=== PATIENT | male | born 1950 | race Caucasian/White ===

== ENCOUNTER 2016-09-09 07:55 | Inpatient (IN) | payer BC, MEDICARE ==
--- NOTE | ~2016-09-09 | CN ---
Consultation Report [facility] [address] [place]. [address] NAME: PRITESH CARTAGENA : 50 STATUS : ADM IN PAT#: [id number] AGE: 66 ADM/REG DATE : 09/09/16 MR#: [id number] REPORT SERV DATE: 09/09/16 DICTATED BY: SETH VALADEZ DATE: 09/09/16 REPORT STATUS : Draft TRANSCRIBED BY: MODL DATE: 09/09/16 DATE OF CONSULTATION: 09/09/2016 REASON FOR CONSULTATION: This is in regard to congestive heart failure, acute on chronic manifestations. HISTORY OF PRESENT ILLNESS: Mr. 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 He has a history of having congestive heart failure with a mild decrease in LV systolic function, ejection fraction last measured in March 45%. No previous history of coronary disease. He has been treated with outpatient salt and fluid restriction as well as use of Lasix. About three days ago, he says that he was getting really busy and stopped taking his Lasix. Last evening in the middle of night while he was lying down, he became increasingly short of breath and then presented to the [facility] Emergency Room with these complaints. Chest x-ray and examination as well as laboratory findings all were suggestive of acute on chronic congestive heart failure with evidence for pulmonary vascular congestion on his chest x-ray and a modestly elevated BNP of 293. The patient received IV diuretic in the emergency room and did have good urinary output to the IV diuretic. His symptoms have improved with his diuresis. He is denying any chest pain or chest discomfort. He has had no problems with hypotension and in fact, has been hypertensive and is currently on an IV Cardene drip. PAST MEDICAL HISTORY: Notable for mild decrease in LV systolic function with ejection fraction last measured at 45% in 03/2016, history of hypertension, history of obstructive sleep apnea, history of benign prostatic hypertrophy, history of COPD, history of diabetes. FAMILY HISTORY: Negative for premature coronary disease or sudden cardiac . SOCIAL HISTORY: EtOH and tobacco use. REVIEW OF SYSTEMS: As noted above. All other systems reviewed and negative. PHYSICAL EXAMINATION: VITAL SIGNS: Currently, blood pressure on IV Cardene of 117/72, his pulse is 74, his respirations are 18, his O2 sat is at 94%. GENERAL: Well developed, well nourished. HEENT: No icterus. Good dentition. NECK: Supple. No masses or thyromegaly. LUNGS: Breathing comfortably. There are some soft rales at the bases bilaterally. COR: Normal S1 and S2. No S3 or S4. No murmurs, clicks, rubs. No JVD. ABD: Soft, nondistended, nontender. No hepatosplenomegaly. EXT: No clubbing, cyanosis, or edema. Peripheral pulses 2+/= bilaterally. SKIN: Warm and dry. No visible lesions. MS: Chest wall without deformity. No obvious clavicular fractures. NEURO/PSYCH: Oriented x3. No anxiety or depression. Consultation Report [address] [place]. [address] NAME: PRITESH CARTAGENA : 50 STATUS : ADM IN [facility]#: [id number] AGE: 66 ADM/REG DATE : 09/09/16 MR#: [id number] REPORT SERV DATE: 09/09/16 DICTATED BY: SETH VALADEZ DATE: 09/09/16 REPORT STATUS : Draft TRANSCRIBED BY: CHRISTIANO DATE: 09/09/16 DATA: EKG shows a sinus rhythm with left bundle-branch block. I do not have an old EKG available to me right now. No further interpretation due to left bundle-branch block. IMPRESSION: 1. The patient with known history of congestive heart failure with evidence of mild LV systolic dysfunction. He demonstrates acute on chronic congestive heart failure and this may be due to pharmacologic noncompliance as the patient stopped taking his Lasix few days ago. We discussed the need for him to stay on the oral diuretic as well as watching carefully salt and fluid intake. We will have the Congestive Heart Failure Service look in on him and go over dietary and pharmacologic issues with him. We will restrict fluid intake and use IV diuresis. The patient does have renal insufficiency with creatinine of 1.39, we will need to monitor this carefully. Possibly, would recommend holding his ENRICO inhibitor for now while he is receiving the diuretic. Monitor for troponin increase. He did have a mild troponin elevation, but we will follow. The patient has had workup for coronary disease in the past that was negative. 2. In terms of his hypertension, some of this could be related to his acute congestive heart failure episode and adrenergic response to hypoxia. We will monitor this over time. 3. Obstructive sleep apnea. Has refused to wear CPAP in the past. This may be contributing to both hypertension and congestive heart failure issues. ILIANA/MODL Seth Valadez M.D. / [id number] CC: Astrid Flores M.D.
--- NOTE | ~2016-09-09 | HP ---
History And Physical [id number] [place]. [address] NAME: PRITESH JOLLEY : 50 STATUS : ADM IN [facility]#: [id number] AGE: 66 ADM/REG DATE : 09/09/16 MR#: [id number] REPORT SERV DATE: 09/09/16 DICTATED BY: GREGORY FLORES DATE: 09/09/16 REPORT STATUS : Draft TRANSCRIBED BY: MODL DATE: 09/09/16 DATE OF ADMISSION: 09/09/2016 HISTORY OF PRESENT ILLNESS: This is a 66-year-old patient I was asked to admit by Dr. Gutiérrez after the patient presented to the emergency room with increasing shortness of breath and chest discomfort. He was hypertensive in the ER as high as 194/94, afebrile, pulse was 87, respiratory rate was 35. He was 92% on 3 L. He got an inch of nitroglycerin paste and started on nitroglycerin drip, Lasix was given, BiPAP was started and aspirin was given as well. The patient then was admitted to the ICU for further care with a diagnosis of exacerbation of CHF, rule out non-STEMI. The patient states that he has forgotten to take his Lasix over the last few days, but denies any nausea, vomiting, fever, diarrhea, or chest heaviness. ALLERGIES: HE HAS NO KNOWN DRUG ALLERGIES. MEDICATIONS AT HOME: Include Lasix 20 mg p.o. daily, Norvasc 5 mg p.o. daily, Diovan 320/25 one tablet daily, Lipitor 40 mg daily, Aleve 440 mg every 12 hours as needed for pain, insulin Tresiba FlexTouch 12 units subcu daily, potassium chloride 20 mEq daily, lisinopril 10 mg daily, amiodarone 200 mg p.o. daily. PAST MEDICAL HISTORY: Significant for mild decrease in left systolic ventricular ejection fraction of about 45%; history of hypertension; obstructive sleep apnea, not compliant with CPAP; history of benign prostatic hypertrophy; COPD; and history of diabetes. He has a history of left bundle-branch block. Pulmonary function tests were done by Dr. Raygoza in 2009 that showed a forced vital capacity of 3.17 which is 74% predicted and an FEV1 of 2.5 which is 77% predicted. SOCIAL HISTORY: The patient occasionally has an alcoholic beverage. The patient smoked about two packs a week for 20 years, but stopped smoking a few years ago. He lives with his . Has five children and several grandchildren and great grandchildren. FAMILY HISTORY: There is a family history of hypertension. There is no history of coronary artery disease. The patient's mom had a history of heart failure, but otherwise there is no other significant family history. REVIEW OF SYSTEMS: As per history of present illness, and a 12-point review of systems was done and is unremarkable. PHYSICAL EXAMINATION: GENERAL: The patient now has been diuresed and is off BiPAP, continues on high-flow O2. VITAL SIGNS: Heart rate is 79, blood pressure is 151/76, respiratory rate is 18 breaths per minute. The patient is afebrile. He is 96% saturated. SKIN: Warm and dry. HEENT: Head is atraumatic and normocephalic. Pupils are equal, round, and reactive to light and accommodation. Notable for some erythema of the bridge of the nose and cheeks. History And Physical [address] [address] NAME: PRITESH JOLLEY : 50 STATUS : ADM IN [facility]#: [id number] AGE: 66 ADM/REG DATE : 09/09/16 MR#: [id number] REPORT SERV DATE: 09/09/16 DICTATED BY: GREGORY FLORES DATE: 09/09/16 REPORT STATUS : Draft TRANSCRIBED BY: CHRISTIANO DATE: 09/09/16 Tongue is midline. Oral mucosa is moist. NECK: Supple without JVD, lymphadenopathy, or thyromegaly. RESPIRATORY: Lungs are diminished at the bases. No wheezing is heard. Occasional crackles are heard. CARDIAC: Reveals a regular rate and rhythm with a soft 2/6 systolic murmur heard at the left sternal border. ABDOMEN: Protuberant but not firm. Soft to touch. Nontender. No organosplenomegaly is appreciated. Bowel sounds are present. EXTREMITIES: Without cyanosis or clubbing, but the patient does have at least 1+ edema. Peripheral pulses are palpable 2+ and symmetrical. NEUROLOGIC: Cranial nerves 2 through 12 are grossly intact. Motor and sensory are intact. EKG shows left bundle-branch block. LAB WORK: Shows a troponin of 1.26. Lactic acid level of 2.5. ABG shows a pH of 7.35, pCO2 of 50, PO2 of 112, bicarbonate of 26, O2 saturation of 98%, 40% FiO2, BiPAP 12/5. Chest x- ray shows some pulmonary vascular congestion. Procalcitonin is 0.10. Influenza A and B are negative. BNP is 293. Sodium 141, potassium 3.7, chloride 102, bicarb 26, BUN 18, creatinine 1.39, glucose 320, calcium 7.9. White cell count is 11, hemoglobin 16, hematocrit 49, platelet count 125,000. INR/PTT is pending. ASSESSMENT AND PLAN: This is a 66-year-old patient with known hypertension, congestive heart failure, mild LV systolic dysfunction, who presents with increasing shortness of breath and congestive heart failure and has not been taking his Lasix for several days. The plan will be to diurese him. BiPAP as needed. Fluid restrictions were also recommended by the bee breeder. The patient more than likely has elevated troponin secondary to demand ischemia and does not need any further cardiac workup. As far as his hypertension is concerned, we will continue with his home medications and monitor his blood pressure and reinforce the need for taking his medications. Obstructive sleep apnea, he is noncompliant but very well could benefit from using CPAP or BiPAP at home in the setting of being overweight and having hypertension and known systolic dysfunction. /MODL Gregory Flores M.D. / [id number] CC: Gregory Flores M.D.
--- NOTE | ~2016-09-09 | DS ---
Discharge Summary [facility] [address] [place]. [address] NAME: PRITESH JOLLEY : 50 STATUS : DIS IN PAT#: [id number] AGE: 66 ADM/REG DATE : 09/09/16 MR#: [id number] REPORT SERV DATE: 09/14/16 DICTATED BY: CAM LEVINE DATE: 09/13/16 REPORT STATUS : Draft TRANSCRIBED BY: MODL DATE: 09/13/16 ADMISSION DATE: 09/09/2016 DISCHARGE DATE: 09/13/2016 PROCEDURES DONE: 1. 09/09/2016, chest x-ray: No acute cardiopulmonary abnormality detected. 2. 09/09/2016, 2D echo: Overall quality of study is adequate. Left ventricular systolic function with ejection fraction of 45% which is similar to 04/25/2016. Right ventricular systolic function appears intact. No significant valvular dysfunction found. Left atrial dilatation which is unchanged. CONSULT: Dr. Chu for Cardiology. REASON FOR ADMISSION: Shortness of breath. HISTORY OF HOSPITAL STAY: A 66-year-old white male with past medical history of hypertension, CHF with systolic ventricle ejection fraction of 45%, ILYA noncompliant with CPAP, BPH, COPD, diabetes, presenting with shortness of breath of unknown duration. The patient was initially admitted and sent to the medical intensive care unit due to the combination of shortness of breath and hypertensive urgency with a systolic blood pressure of 194/94. The patient was put on nitroglycerin drip as well as BiPAP. The patient apparently has not been taking his medications prior to coming in x3 days. When the patient was restarted on medications, the patient's shortness of breath secondary to hypertensive urgency as well as his congestive heart failure began to improve. More importantly, once the patient was stabilized, he was sent to the telemetry floor and the patient has been counseled to try to comply with his medical treatments and medications. Once the patient has been switched to p.o. medications, the patient has been able to tolerate his treatment without any complications. The patient has been advised to follow up with Cardiology within three to four weeks' time. DISPOSITION: The patient is feeling fine, no complaint. ACTIVITIES: As tolerated. DIET: Diabetic. INSTRUCTIONS UPON DISCHARGE: 1. The patient followup with primary care within one to two weeks' time. 2. The patient followup with Cardiology within three to four weeks' time. MEDICATION UPON DISCHARGE: 1. Amlodipine 10 mg p.o. daily. 2. Lasix 40 mg p.o. daily. 3. Tresiba 20 units subcu daily p.r.n. 4. Valsartan and hydrochlorothiazide 320/25 p.o. daily. 5. Lipitor 40 mg p.o. daily. Discharge Summary [address] [address] NAME: PRITESH JOLLEY : 50 STATUS : DIS IN PAT#: [id number] AGE: 66 ADM/REG DATE : 09/09/16 MR#: [id number] REPORT SERV DATE: 09/14/16 DICTATED BY: CAM LEVINE DATE: 09/13/16 REPORT STATUS : Draft TRANSCRIBED BY: CHRISTIANO DATE: 09/13/16 6. Naproxen 440 mg p.o. b.i.d. p.r.n. 7. Potassium 20 mEq daily. 8. Lisinopril 10 mg p.o. daily. 9. Cordarone 200 mg p.o. daily. DIAGNOSES UPON DISCHARGE: 1. Shortness of breath secondary to hypertensive urgency versus acute on chronic congestive heart failure, systolic dysfunction, ejection fraction of 45%. 2. Acute on chronic systolic congestive heart failure, systolic dysfunction, ejection of 45%. 3. Hypertensive urgency. 4. Hypertension. 5. Diabetes type 2. 6. Chronic obstructive pulmonary disease. 7. Obstructive sleep apnea, noncompliant. 8. Demand ischemia. 9. Noncompliance. JARRED/CHRISTIANO Cam Levine MD / [id number] CC: MD Chayito Duarte M.D.
[2016-09-09 07:57] LABS: BASOPHILS 0.3 %; BASOPHILS ABSOLUTE 0.04 10/3/uL (0.0-0.16); EOSINOPHILS 0.5 %; EOSINOPHILS ABSOLUTE 0.06 10/3/uL (0.0-0.53); HEMOGLOBIN 16.7 g/dL (13.6-17.8); IMMATURE GRANULOCYTES 0.3 %; IMMATURE GRANULOCYTES ABSOLUTE 0.03 10/3/uL (0.0-0.11); LYMPHOCYTES 12.3 %; LYMPHOCYTES ABSOLUTE 1.42 10/3/uL (0.67-4.30); MEAN CORPUS HGB CONC 34.1 g/dL (32.0-36.0); MEAN CORPUSCULAR HEMOGLOB 30.9 pg (26.0-34.0); MEAN CORPUSCULAR VOLUME 90.7 fL (80-100); MONOCYTES 5.6 %; MONOCYTES ABSOLUTE 0.65 10/3/uL (0.21-1.20); NEUTROPHILS ABSOLUTE 9.31 10/3/uL (2.02-8.40); PLATELET COUNT 125 10/3/uL (150-400); WHITE BLOOD CELLS 11.5 10/3/uL (4.5-10.5)
[2016-09-09 08:00] LABS: MANUAL DIFF NO %
[2016-09-09 08:11] LABS: BUN (BLOOD UREA NITROGEN) 18 MG/DL (6-23); CALCIUM, SERUM 7.9 MG/DL (8.5-10.4); CHLORIDE, SERUM 102 MMOL/L (96-112); CO2 (CARBON DIOXIDE) 26 MMOL/L (24-34); CREATININE 1.39 MG/DL (0.70-1.30); GFR AFRICAN AMERICAN 61 ML/MIN (>=60); GFR NON AFRICAN AMERICAN 52 ML/MIN (>=60); GLUCOSE, SERUM 320 MG/DL (60-99); POTASSIUM, SERUM 3.7 MMOL/L (3.5-5.3); SODIUM, SERUM 141 MMOL/L (135-148)
[2016-09-09 08:13] LABS: LACTATE 2.1 MMOL/L (0.3-2.4)
[2016-09-09 08:16] LABS: CHEST PAIN PROFILE TAT 0 Hrs 25 Mins; TROPONIN I 0.08 NG/ML (<0.05)
[2016-09-09 09:24] LABS: INFLUENZA A SCREEN NEGATIVE (NEGATIVE); INFLUENZA B SCREEN NEGATIVE (NEGATIVE)
[2016-09-09] MEDS ORDERED: ALEVE220 MG PO (09:34)
[2016-09-09] MEDS ORDERED: NORV5 PO (09:34)
[2016-09-09] MEDS ORDERED: DIOVAN HCT320 MG/25 PO (09:34)
[2016-09-09] MEDS ORDERED: L20 PO (09:34)
[2016-09-09] MEDS ORDERED: LIPITOR40 PO (09:34)
[2016-09-09] MEDS ORDERED: CORDARONE PO (09:35)
[2016-09-09] MEDS ORDERED: PRIN10 PO (09:35)
[2016-09-09] MEDS ORDERED: TRESIBA FL200 UNIT/1 SC (09:35)
[2016-09-09] MEDS ORDERED: KLOR-CON M2020 MEQ PO (09:35)
[2016-09-09 11:25] LABS: ALLENS TEST Pos; BE (BASE EXCESS) 0.3 MEQ/L (0 +/- 2.5); CARBOXYHEMOGLOBIN 0.4 % (0-3); HCO3 (ACTUAL BICARBONATE) 26.8 MEQ/L (23-27); HEMOBLOGIN CONTENT 16.9 G/DL (14-18); INSTRUMENT SERIAL # 35151; METHEMOGLOBIN 0.6 % (0-3); O2 CONTENT 23.1 VOL% (18-24); OPERATOR ID 35798; PCO2 (CO2 TENSION) 50 MMHG (35-45); PO2 (O2 TENSION) 112 MMHG (79-93); SAMPLE Arterial; pH 7.35 (7.37-7.43)
[2016-09-09 17:19] LABS: BUN (BLOOD UREA NITROGEN) 20 MG/DL (6-23); CALCIUM, SERUM 8.8 MG/DL (8.5-10.4); CHLORIDE, SERUM 102 MMOL/L (96-112); CO2 (CARBON DIOXIDE) 30 MMOL/L (24-34); CREATININE 1.78 MG/DL (0.70-1.30); GFR AFRICAN AMERICAN 45 ML/MIN (>=60); GFR NON AFRICAN AMERICAN 39 ML/MIN (>=60); SODIUM, SERUM 142 MMOL/L (135-148)
[2016-09-09 17:21] LABS: GLUCOSE, SERUM 360 MG/DL (60-99); TROPONIN I 1.31 NG/ML (<0.05)
[2016-09-10 03:52] LABS: BASOPHILS 0.1 %; BASOPHILS ABSOLUTE 0.01 10/3/uL (0.0-0.16); EOSINOPHILS 0 %; HEMOGLOBIN 15.7 g/dL (13.6-17.8); IMMATURE GRANULOCYTES 0.2 %; IMMATURE GRANULOCYTES ABSOLUTE 0.03 10/3/uL (0.0-0.11); LYMPHOCYTES 7.6 %; LYMPHOCYTES ABSOLUTE 1.11 10/3/uL (0.67-4.30); MANUAL DIFF NO %; MEAN CORPUS HGB CONC 33.4 g/dL (32.0-36.0); MEAN CORPUSCULAR HEMOGLOB 30.3 pg (26.0-34.0); MEAN CORPUSCULAR VOLUME 90.6 fL (80-100); MEAN PLATELET VOLUME 12.6 fL (9.2-13.0); MONOCYTES 4.2 %; MONOCYTES ABSOLUTE 0.61 10/3/uL (0.21-1.20); NEUTROPHILS 87.9 %; NEUTROPHILS ABSOLUTE 12.78 10/3/uL (2.02-8.40); PLATELET COUNT 166 10/3/uL (150-400); RBC DISTRIBUTION WIDTH 14.3 % (12.0-16.0); RED CELL COUNT 5.19 10/6/uL (4.7-6.1); WHITE BLOOD CELLS 14.5 10/3/uL (4.5-10.5)
[2016-09-10 04:09] LABS: ALBUMIN 3.1 G/DL (3.5-5.0); ALKALINE PHOSPHATASE 80 U/L (45-117); CALCIUM, SERUM 8.5 MG/DL (8.5-10.4); CHLORIDE, SERUM 102 MMOL/L (96-112); CO2 (CARBON DIOXIDE) 33 MMOL/L (24-34); CREATININE 1.64 MG/DL (0.70-1.30); GFR AFRICAN AMERICAN 50 ML/MIN (>=60); GFR NON AFRICAN AMERICAN 43 ML/MIN (>=60); GLOBULIN 3.2 G/DL (2.5-4.1); PHOSPHORUS, SERUM 3.8 MG/DL (2.5-4.5); POTASSIUM, SERUM 4.3 MMOL/L (3.5-5.3); SGOT(AST) 20 U/L (5-40); SGPT(ALT) 36 U/L (5-65); SODIUM, SERUM 143 MMOL/L (135-148); TOTAL BILIRUBIN 0.5 MG/DL (0-1.2); TOTAL PROTEIN 6.3 G/DL (6.0-8.5)
[2016-09-10 04:13] LABS: BUN (BLOOD UREA NITROGEN) 27 MG/DL (6-23); GLUCOSE, SERUM 205 MG/DL (60-99)
[2016-09-11 04:56] LABS: BASOPHILS 0.2 %; BASOPHILS ABSOLUTE 0.02 10/3/uL (0.0-0.16); EOSINOPHILS 0.1 %; EOSINOPHILS ABSOLUTE 0.01 10/3/uL (0.0-0.53); HEMOGLOBIN 17.2 g/dL (13.6-17.8); IMMATURE GRANULOCYTES 0.2 %; IMMATURE GRANULOCYTES ABSOLUTE 0.02 10/3/uL (0.0-0.11); LYMPHOCYTES 28.1 %; LYMPHOCYTES ABSOLUTE 3.74 10/3/uL (0.67-4.30); MEAN CORPUS HGB CONC 33.1 g/dL (32.0-36.0); MEAN CORPUSCULAR HEMOGLOB 30.8 pg (26.0-34.0); MEAN CORPUSCULAR VOLUME 93.2 fL (80-100); MEAN PLATELET VOLUME 12.8 fL (9.2-13.0); MONOCYTES 5.7 %; MONOCYTES ABSOLUTE 0.76 10/3/uL (0.21-1.20); NEUTROPHILS 65.7 %; NEUTROPHILS ABSOLUTE 8.75 10/3/uL (2.02-8.40); PLATELET COUNT 195 10/3/uL (150-400); RBC DISTRIBUTION WIDTH 14.5 % (12.0-16.0); RED CELL COUNT 5.58 10/6/uL (4.7-6.1); WHITE BLOOD CELLS 13.3 10/3/uL (4.5-10.5)
[2016-09-11 04:58] LABS: MANUAL DIFF NO %
[2016-09-11 05:04] LABS: CALCIUM, SERUM 8.3 MG/DL (8.5-10.4); CHLORIDE, SERUM 95 MMOL/L (96-112); CO2 (CARBON DIOXIDE) 34 MMOL/L (24-34); CREATININE 1.69 MG/DL (0.70-1.30); GFR AFRICAN AMERICAN 48 ML/MIN (>=60); GFR NON AFRICAN AMERICAN 41 ML/MIN (>=60); GLUCOSE, SERUM 169 MG/DL (60-99); PHOSPHORUS, SERUM 3.6 MG/DL (2.5-4.5); POTASSIUM, SERUM 3.7 MMOL/L (3.5-5.3); SODIUM, SERUM 140 MMOL/L (135-148)
[2016-09-11 05:07] LABS: BUN (BLOOD UREA NITROGEN) 31 MG/DL (6-23)
[2016-09-12 06:45] LABS: BUN (BLOOD UREA NITROGEN) 31 MG/DL (6-23); CALCIUM, SERUM 8.5 MG/DL (8.5-10.4); CHLORIDE, SERUM 94 MMOL/L (96-112); CO2 (CARBON DIOXIDE) 35 MMOL/L (24-34); GFR AFRICAN AMERICAN 51 ML/MIN (>=60); GFR NON AFRICAN AMERICAN 44 ML/MIN (>=60); GLUCOSE, SERUM 199 MG/DL (60-99); POTASSIUM, SERUM 3.7 MMOL/L (3.5-5.3); SODIUM, SERUM 136 MMOL/L (135-148)
[2016-09-13 06:45] LABS: BASOPHILS 0.4 %; BASOPHILS ABSOLUTE 0.03 10/3/uL (0.0-0.16); EOSINOPHILS 0.8 %; EOSINOPHILS ABSOLUTE 0.07 10/3/uL (0.0-0.53); HEMOGLOBIN 17.4 g/dL (13.6-17.8); IMMATURE GRANULOCYTES 0.1 %; IMMATURE GRANULOCYTES ABSOLUTE 0.01 10/3/uL (0.0-0.11); LYMPHOCYTES ABSOLUTE 2.34 10/3/uL (0.67-4.30); MEAN CORPUS HGB CONC 33.5 g/dL (32.0-36.0); MEAN CORPUSCULAR HEMOGLOB 30.7 pg (26.0-34.0); MEAN CORPUSCULAR VOLUME 91.7 fL (80-100); MEAN PLATELET VOLUME 12.6 fL (9.2-13.0); MONOCYTES 10.4 %; MONOCYTES ABSOLUTE 0.87 10/3/uL (0.21-1.20); NEUTROPHILS 60.3 %; NEUTROPHILS ABSOLUTE 5.04 10/3/uL (2.02-8.40); PLATELET COUNT 168 10/3/uL (150-400); RBC DISTRIBUTION WIDTH 13.8 % (12.0-16.0); RED CELL COUNT 5.67 10/6/uL (4.7-6.1); WHITE BLOOD CELLS 8.4 10/3/uL (4.5-10.5)
[2016-09-13 06:47] LABS: MANUAL DIFF NO %
[2016-09-13 06:55] LABS: ALBUMIN 3.3 G/DL (3.5-5.0); BUN (BLOOD UREA NITROGEN) 42 MG/DL (6-23); CALCIUM, SERUM 8.6 MG/DL (8.5-10.4); CHLORIDE, SERUM 93 MMOL/L (96-112); CO2 (CARBON DIOXIDE) 33 MMOL/L (24-34); CREATININE 1.66 MG/DL (0.70-1.30); GFR AFRICAN AMERICAN 49 ML/MIN (>=60); GFR NON AFRICAN AMERICAN 42 ML/MIN (>=60); GLUCOSE, SERUM 168 MG/DL (60-99); PHOSPHORUS, SERUM 4.2 MG/DL (2.5-4.5); POTASSIUM, SERUM 3.6 MMOL/L (3.5-5.3); SODIUM, SERUM 139 MMOL/L (135-148)
== END 2016-09-13 19:29 | disposition home or self-care (01) | DRG 291 ==
LOC: ER 07:55 → CCU 10:02 → 7NO 09-11 13:10
PROVIDERS: Hospitalist; Internal Medicine; Internal Medicine Cardiovascular Disease; Internal Medicine Pulmonary Disease; Nurse Practitioner Family
DX: I13.0 Hypertensive heart and chronic kidney disease with heart failure and stage 1 through stage 4 chronic kidney disease, or unspecified chronic kidney disease (principal); I50.23 Acute on chronic systolic (congestive) heart failure; I24.8 Other forms of acute ischemic heart disease; J44.9 Chronic obstructive pulmonary disease, unspecified; G47.33 Obstructive sleep apnea (adult) (pediatric); N40.0 Benign prostatic hyperplasia without lower urinary tract symptoms; I44.7 Left bundle-branch block, unspecified; E66.9 Obesity, unspecified; E11.9 Type 2 diabetes mellitus without complications; Z91.19 Patient's noncompliance with other medical treatment and regimen; Z87.891 Personal history of nicotine dependence; N18.3 Chronic kidney disease, stage 3 (moderate); I16.0 Hypertensive urgency
CPT/HCPCS: 36600; 71010; 80048; 80053; 80069; 82330; 82803; 82805; 82947; 82962; 83605; 83735; 83880; 84100; 84132; 84145; 84295; 84484; 85014; 85025; 85610; 85730; 87040; 87641; 87804; 93005; 94660; 96374; 99291; A9270-GY; C8929; J0360; Q9957